=== PATIENT | female | born 1950 | race Caucasian/White ===

== ENCOUNTER 2022-07-13 05:46 | Observation (INO) ==
--- NOTE | 2022-06-22 08:56 | PAT Medication Instructions ---
Medication Instructions Date of Service June 22, 2022 Home Medications atenolol 50 mg-chlorthalidone 25 mg tablet 1 tab PO QPM atorvastatin 40 mg tablet 40 mg PO QPM docusate sodium 100 mg capsule 100 mg PO BID fluoxetine 20 mg capsule (Prozac) 20 mg PO QPM metformin 1,000 mg tablet 500 mg PO BID Centrum Silver 1 tab PO QAM nitroglycerin 0.4 mg sublingual tablet 0.4 mg sublingual Q5M PRN Chest Pain aspirin 81 mg tablet,delayed release 81 mg PO QPM calcium carbonate 500 mg-vitamin D3 3.125 mcg (125 unit) tablet 1 tab PO QAM gabapentin 100 mg capsule 200 mg PO BID lisinopril 5 mg tablet 5 mg PO QAM Continue as directed nitroglycerin 0.4 mg sublingual tablet 0.4 mg sublingual Q5M PRN Chest Pain (if needed) ASK your prescriber and surgeon aspirin 81 mg tablet,delayed release 81 mg PO QPM DO NOT take the morning of surgery docusate sodium 100 mg capsule 100 mg PO BID metformin 1,000 mg tablet 500 mg PO BID Centrum Silver 1 tab PO QAM calcium carbonate 500 mg-vitamin D3 3.125 mcg (125 unit) tablet 1 tab PO QAM lisinopril 5 mg tablet 5 mg PO QAM Take morning of surgery With a small sip of water, OTHERWISE NOTHING TO EAT OR DRINK AFTER MIDNIGHT: gabapentin 100 mg capsule 200 mg PO BID Take evening before surgery atenolol 50 mg-chlorthalidone 25 mg tablet 1 tab PO QPM atorvastatin 40 mg tablet 40 mg PO QPM docusate sodium 100 mg capsule 100 mg PO BID fluoxetine 20 mg capsule (Prozac) 20 mg PO QPM metformin 1,000 mg tablet 500 mg PO BID gabapentin 100 mg capsule 200 mg PO BID Other Notes If you have any questions please call us at [phone] or [phone] or [phone] or [phone]
--- NOTE | 2022-06-26 11:44 | Anesthesiology Consultation ---
Date of Service June 26, 2022 Assessment & Plan (1) Encounter for pre-operative examination: - check BSG am DOS. - Case discussed with Dr. Jones who advised pt can proceed as currently scheduled. - cardiology 09/13/21: "...history of CAD status post 2 vessel bypass-VERA to the LAD and SVG to OM...remains reasonably active...no cardiac symptoms currently...mild LV dysfunction...to check an echocardiogram to follow the estimated EF...no change to her cardiovascular medications..." Subsequent echo demonstrated EF 55%. Chart Review Chart Review: Acceptable Risk for Surgery and Patient seen in Pre Admission Testing Teaching & Discussion Pre-Anesthesia Teaching/Discussion Notes: Instructed NPO after midnight before surgery, except medications with 15 cc of water. Medication instructions provided according to the PAT guidelines. History Surgery Operation Date: 07/13/22 07:30 Proposed Procedures p Vaginal Hysterectomy, Anterior and Posterior Colpoperineorrhaphy - Ezra Ko MD Height/Weight Height: 5 ft 3 in Weight: 72.575 kg Allergies Allergy/AdvReac Type Severity Reaction Status Date / Time No Known Allergies Allergy Verified 06/21/22 10:48 Medications Home Medications Medication Instructions Recorded Confirmed Last Taken atenolol 50 mg-chlorthalidone 25 1 tab PO QPM 06/30/19 06/21/22 Unknown mg tablet atorvastatin 40 mg tablet 40 mg PO QPM 06/30/19 06/21/22 Unknown docusate sodium 100 mg capsule 100 mg PO BID 06/30/19 06/21/22 Unknown fluoxetine 20 mg capsule (Prozac) 20 mg PO QPM 06/30/19 06/21/22 Unknown metformin 1,000 mg tablet 500 mg PO BID 06/30/19 06/21/22 Unknown xzvhqfbw-rlp-[id number] acid 0.4 1 tab PO QAM 06/30/19 06/21/22 Unknown mg-lycopene 300 mcg-lutein 250 mcg tablet (Centrum Silver) nitroglycerin 0.4 mg sublingual 0.4 mg sublingual Q5M PRN Chest 06/30/19 06/21/22 Unknown tablet Pain aspirin 81 mg tablet,delayed 81 mg PO QPM 06/21/22 06/21/22 Unknown release calcium carbonate 500 mg-vitamin 1 tab PO QAM 06/21/22 06/21/22 Unknown D3 3.125 mcg (125 unit) tablet gabapentin 100 mg capsule 200 mg PO BID 06/21/22 06/21/22 Unknown lisinopril 5 mg tablet 5 mg PO QAM 06/21/22 06/21/22 Unknown Past Medical History Medical History (Updated 06/26/22 @ 15:30 by Jennifer Hinds PA-C) Blind RT "D/T STREP INFECTION" CAD (coronary artery disease) x 2 in 2013, 3 stents in 2010 Glaucoma NO EYE DROPS Hearing deficit History of anxiety History of cellulitis HOSPITALIZED>LEFT HAND 3 WEEKS AGO AT [facility] "HEALED" History of COVID-19 06/2021>SYMPTOMS RESOLVED Hyperlipidemia Hypertension controlled, stable per pt Myocardial Infarction 2013 Peripheral neuropathy feet Prediabetes on metformin, A1c 6.3% Prolapsed bladder Patient denies h/o stroke, seizures, heart failure, blood clots or blood transfusions. Exercise / Class Metabolic Activity III < 4 Walking/Shop/Light housework (denies CP or SOB with usual activities, ambulates with cane) Past Family History Family History Father Tuberculosis Mother Heart problem Other No family history of adverse response to anesthesia Past Surgical History Surgical History History of cataract surgery RT/LEFT History of cholecystectomy History of colonoscopy History of coronary artery bypass graft 2013 X2 VESSELS AT [facility] (FOLLOWED BY DR. TURNER) History of heart artery stent X 2>2010 History of lumbar fusion Past Anesthesia History No Hx of Anesthesia Complications and No Family Hx of Anesthesia Complications History of PONV No Hx of PONV and No Hx of Motion Sickness Social History Smoking Status: Never smoker Do You Dip or Chew Tobacco: No Hx Alcohol Use: No substance use type: does not use Review of Systems Snoring, denies witnessed apneas. Patient denies chest pain, shortness of breath, dyspnea on exertion, reflux, fever, chills, cough, wheezing, or palpitations. Physical Exam Vital Signs Vitals BP 115/74 P 52 SP02 96% on RA RESP 18 Physical Full cervical extension range of motion without pain TMD 3.5 finger breadths Mallampati Score 2 Dentition: edentulous, full upper and lower dentures Lungs: normal respiratory effort. Clear throughout to auscultation, no adventitious breath sounds Cardiac: regular rate and rhythm, no murmurs noted Carotid arteries: negative bruit bilat Lab Results Anesthesia Preop Results Results Anesthesia Widget: WBC 7.52 K/ul (4.8-10.8) 06/26/22 Hgb 13.0 g/dl (12.0-16.0) 06/26/22 Hct 40.9 % (34.1-44.9) 06/26/22 Plt 216 K/uL (130-400) 06/26/22 Na 138 mmol/L (136-145) 06/26/22 K 4.1 mmol/L (3.5-5.1) 06/26/22 Cl 101 mmol/L (98-107) 06/26/22 CO2 30 mmol/L (21-32) 06/26/22 BUN 19 mg/dl (6-23) 06/26/22 Creat 1.34 mg/dl (0.6-1.2) H 06/26/22 Glucose Level 85 mg/dl (70-99(Fasting)) 06/26/22 PT 10.8 Seconds (9.0-12.0) 06/26/22 PTT 25.2 Seconds (21.0-31.0) 06/26/22 INR 1.0 (0.9-1.1) 06/26/22 HA1c 6.3 % (4.5-5.6) H 06/26/22 Blood Type B Negative 06/26/22 Antibody Screen NEGATIVE 06/26/22 Testing Electrocardiogram Date: 10/03/21 Sinus rhythm, rate 53 bpm Moderate right-precordial repolarization disturbance, consider feminine pattern Echocardiogram Date: 01/24/22 EF 55% Grade I diastolic dysfunction Mild mitral regurgitation Mild pulmonic regurgitation COVID-19 Risk Screen Screening Information COVID-19 Screen Date: 06/26/22 Exposure 21 Days Family/Household +COVID Last 21 Days: No Exposure 10 Days Any COVID Exposure Last 10 Days: No Symptoms Last 10 Days Experienced COVID Sx Last 10 Days: No + COVID 0-90 Days COVID + in Last 0-90 Days: No
--- NOTE | 2022-06-26 13:10 | History and Physical Report ---
DATE OF ADMISSION: 07/13/2022 CHIEF COMPLAINT: Mass protruding from vagina on coughing or sneezing. HISTORY OF PRESENT ILLNESS: The patient is a 71-year-old 2, para 2. She had her tubes tied for control many years ago. She had cardiac stents placed in [place] in 2010 and then she had a cardiac bypass surgery in 2013 in [place]. She also has had back surgery at [facility] and she lost t he sight in her right eye in 2018 because of a strep infection. She underwent menopause at age 49. She has had no bleeding since. She has a mass protruding from her vagina on coughing, sneezing, stra ining; present for over 6 months, getting progressively worse and it interferes with her ability to h old her urine. She was examined in the office, found to have a third-degree cystocele, second-degree uterine prolapse and first-degree rectocele. She is presently being scheduled for vaginal hysterecto my, anterior and posterior colporrhaphy with insertion of suprapubic cystocath. ALLERGIES: She has no known drug allergies. PAST SURGICAL HISTORY: She had tubal ligation, cardiac bypass, cardiac stents and back surgery. MEDICATIONS: She is on Centrum vitamin. She is on baby aspirin. She is on metformin. She is on li sinopril. She is on gabapentin, Tenormin and Prozac 20 mg a day. PAST MEDICAL HISTORY: Complicated by diabetes and high blood pressure. SOCIAL HISTORY: No smoking, no excessive alcohol intake. She stays at home. FAMILY HISTORY: She has 2 children, in good health. Mom at age 84 of complications of bowel bl ockage. Father at age 63 of tuberculosis associated with alcoholism. Four sisters, two brother s. One brother at age 58 of complications of alcoholism, diabetes, and kidney failure. One brot her is 66, in good health. Three of her four sisters . One sister at age 60 after having a breast reduction. One sister at age 88 of complications of dementia. One sister at 78 is in go od health except for arthritis. One sister in her 60s, she was grossly overweight and had compl ications of diabetes and high blood pressure. REVIEW OF SYSTEMS: HEAD: No symptoms of frequent or severe headaches. EYES: She has lost the sight in her right eye. PHYSICAL EXAMINATION: GENERAL: Well-developed, well-nourished 71-year-old white female, alert, oriented x3, cooperative, i n no acute distress, appeared her stated age. EYES: Conjunctivae pink. Sclerae white, no evidence of jaundice. Right eye is present, but not fun ctional. HEART: Had regular rhythm. S1 and S2 are normal. BREASTS: Normal. CHEST: There was a midline incision in the chest, well-healed. ABDOMEN: Soft and nontender. MUSCULOSKELETAL: No CVA tenderness, no calf tenderness. PELVIC: Revealed a large cystocele protruding from the vagina on coughing, sneezing or straining. S he also had a first-degree uterine prolapse and a first-degree rectocele. IMPRESSIONS OF THIS CASE: High blood pressure, diabetes, heart disease, status post tubal ligation, status post cardiac bypass, loss of sight of her right eye due to streptococcal infection. Symptomat ic cystocele, symptomatic prolapse, symptomatic rectocele. Job ID: [id number]
[2022-07-13] MEDS ORDERED: LR 15ML/HR IV SCH ×2 (06:00)
[2022-07-13] MEDS ORDERED: cefOXitin 2,000 MG in DEXTROSE 5% 50 ML IV SCH (06:00)
[2022-07-13] MEDS ORDERED: fentaNYL citrate 100 MCG/2 ML VIAL ONE (06:50)
[2022-07-13] MEDS ORDERED: PROPOFOL IV EMULSION 10 MG/ML 20 ML VIAL IV ONE (06:50)
[2022-07-13] MEDS ORDERED: ROCURONIUM BROMIDE 10 MG/ML 5 ML VIAL IV ONE (06:50)
[2022-07-13] MEDS ORDERED: MIDAZOLAM HCL 1 MG/ML 2ML VIAL ONE (06:50)
[2022-07-13] MEDS ORDERED: LIDOCAINE 2% 20 MG/ML 5 ML SYR IV ONE (06:50)
[2022-07-13] MEDS ORDERED: PREMARIN VAG CRM 14 APPLN/30 GM TUBE ONE (07:01)
[2022-07-13] MEDS ORDERED: ATROPINE SULFATE 0.1 MG/ML 10ML SYR IV PRN (07:10)
[2022-07-13] MEDS ORDERED: ePHEDrine sulfate 50 MG/ML AMP IV PRN ×2 (07:10→11:19)
[2022-07-13] MEDS ORDERED: PROMETHAZINE HCL 12.5 MG in SODIUM CHLORIDE 0.9% 50 ML IV PRN (07:10)
[2022-07-13] MEDS ORDERED: fentaNYL citrate 100 MCG/2 ML VIAL IV PRN (07:10)
[2022-07-13] MEDS ORDERED: ONDANSETRON INJ 2 MG/ML 2 ML VIAL IV PRN ×2 (07:10→11:19)
[2022-07-13] MEDS ORDERED: HYDROmorphone INJ 2 MG/ML SYR/VIAL IV PRN (07:10)
[2022-07-13] MEDS ORDERED: ACETAMINOPHEN 1000 MG/100 ML IV IV ONE (07:18)
--- NOTE | 2022-07-13 07:20 | History & Physical Bridge Note ---
Date of Service July 13, 2022 History & Physical Bridge Note I have examined the patient, reviewed the History & Physical and in the interval since the performance of the History & Physical I have noted the following changes of clinical significance: no changes noted
[2022-07-13] MEDS ORDERED: MoRPHine SULFATE PF 1 MG/ML 10 ML AMP/VIAL ONE (07:24)
[2022-07-13] MEDS ORDERED: LIDOCAINE 1%/EPINEPHRINE 1:100,000 50 ML VIAL ONE ×2 (08:11→09:23)
[2022-07-13] MEDS ORDERED: ONDANSETRON INJ 2 MG/ML 2 ML VIAL ONE (08:35)
[2022-07-13] MEDS ORDERED: ePHEDrine sulfate 50 MG/ML SYR ONE (08:41)
[2022-07-13] MEDS ORDERED: ePHEDrine sulfate 50 MG/ML AMP ONE (08:41)
[2022-07-13] MEDS ORDERED: PHENYLEPHRINE HCL 10 MG/ML VIAL ONE (08:41)
--- NOTE | 2022-07-13 11:11 | Post Operative Brief Note ---
Immediate Post Op Note v1 Date of Surgery July 13, 2022 Pre & Post Diagnosis Operation Date: 07/13/22 07:15 Pre-Op Diagnosis: Uterine Prolapse, 3 degree cystocele Rectocele Post-Op Diagnosis: Uterine Prolapse, 3 degree cystocele Rectocele I identified the patient and participated in the time-out.: Yes Procedure Operation Date: 07/13/22 07:15 Actual Procedures p Vaginal Hysterectomy, Anterior and Posterior Colpoperineorrhaphy, Insertion suprapubic catheter(Not Applicable) - Ezra Ko MD s Repair of Bowel and Bladder Insertion of Suprapubic Cystocath - Ezra Ko MD Surgeon Ezra Ko MD Harness Rigger none Estimated Blood Loss 100 Findings Consistent with Post-Op Diagnosis uterine fibroid Drains Suprapubic Catheter Anesthesia Type General
[2022-07-13] MEDS ORDERED: NALOXONE HCL 0.4 MG/1 ML VIAL/CARP IV PRN (11:19)
[2022-07-13] MEDS ORDERED: LACTATED RINGER'S 500 ML IV PRN (11:19)
[2022-07-13] MEDS ORDERED: NALBUPHINE HCL INJ 10 MG/ML AMP IV PRN (11:19)
[2022-07-13] MEDS ORDERED: MEPERIDINE HCL 25 MG/ML CARP/VIAL IV PRN (11:19)
[2022-07-13] MEDS ORDERED: NALOXONE HCL 1 MG in SODIUM CHLORIDE 0.9% 1000ML 1,000 ML IV PRN (11:19)
[2022-07-13] MEDS ORDERED: KETOROLAC 30 MG/ML VIAL IV PRN (11:19)
[2022-07-13] MEDS ORDERED: NALOXONE HCL 0.08 MG in SYRINGE 1.8 ML IV PRN (11:19)
[2022-07-13] MEDS ORDERED: MoRPHine SULFATE PF 1 MG/ML 10 ML AMP/VIAL INT SPINAL ONE (11:19)
[2022-07-13] MEDS ORDERED: diphenhydrAMINE 50 MG/ML VIAL IV PRN (11:19)
[2022-07-13] MEDS ORDERED: HYDROmorphone INJ 0.5 MG/0.5 ML SYR IV PRN (11:19)
[2022-07-13] MEDS ORDERED: PROMETHAZINE HCL 25 MG in SODIUM CHLORIDE 0.9% 50 ML IV PRN (11:19)
[2022-07-13] MEDS ORDERED: MoRPHine SULFATE 2 MG/ML CARP IV PRN (11:19)
[2022-07-13] MEDS ORDERED: SODIUM CHLORIDE 0.9% 1000ML 1,000 ML IV SCH (11:30)
[2022-07-13] MEDS ORDERED: DC INTRASPINAL MORPHINE SCH (11:30)
[2022-07-13] MEDS ORDERED: NO NARCOTICS OR SEDATIVES SCH (11:30)
--- NOTE | 2022-07-13 11:58 | Operative Report (OR) ---
DATE OF PROCEDURE: 07/13/2022. PROCEDURE: Vaginal hysterectomy, anterior colporrhaphy, posterior colporrhaphy, insertion of suprapu bic cysto cath. INDICATIONS FOR SURGERY: Mass protruding from the vagina. Loss of urine on coughing or sneezing. PREOPERATIVE DIAGNOSES: Symptomatic vaginal prolapse along with cystocele and rectocele. POSTOPERATIVE DIAGNOSES: Symptomatic vaginal prolapse along with cystocele and rectocele. Cervical fibroid. SURGEON: Zulma Ko MD. ESTIMATED BLOOD LOSS: 100 mL. ANESTHESIA: General with spinal narcotics. ONLINE MARKETING STRATEGIST: None. OPERATIVE FINDINGS AND PROCEDURE: The patient was brought to the OR table, correctly identified by a rmband and conversation. General anesthesia was administered. Perineum and vagina were painted with Betadine paint, draped in the usual sterile fashion. Catheter was used to empty the bladder. Weigh theo speculum was placed in the posterior vagina. The cervix was sutured with a [id number] sutur e of silk rope and we used this to put traction on the cervix. The end of the cervix could be easily brought out through the opening of the vagina. The cervical area was infiltrated with local with ep inephrine. A circular incision was made around the cervix. The bladder was taken off by hugging the cervix at 12 o'clock spreading with the scissors and then blunt dissection. Bladder pillars were cl amped with a Esperanza and then ligated with a transfixion suture of chromic catgut. Then, we started by ligating the uterosacral ligaments on either side with a Esperanza, cutting and ligating with a transfix ion suture of chromic catgut. We then started on the cardinal ligaments. They were clamped, cut wit h a stump, ligated with a transfixion suture of chromic catgut. This was done in 2 steps on each veena e because of the length of the cervix. Then, the peritoneum was entered anteriorly and posteriorly. The remaining portion of the cardinal ligament and uterine vessels were once again clamped, cut with a stump and ligated with a transfixion suture of chromic catgut. The body of the uterus was grasped with a tenaculum and brought out through the cuff and the remaining portion of the tube, ovarian lig ament, and broad ligament was doubly clamped on each side. The surgical specimen was removed, consis ting of uterus and cervix. Then, the adnexal area was doubly ligated with chromic gut sutures. We t hen obliterated the cul-de-sac with a suture, then incorporated the vaginal cuff, was basically a pur sestring suture went from one cardinal ligament incorporating the uterosacral ligaments to the other cardinal ligament and then went up higher and obliterated part of the vaginal cuff. That gave good s upport. We then did an anterior colporrhaphy by grasping the vaginal mucosa 1 cm from the external u rethral meatus and then infiltrating the midline with local with epinephrine, making an incision righ t down to the end of the anterior vaginal mucosa grabbing the edges of the vaginal mucosa with T clam ps and then using a very careful dissection, we dissected out all of the bladder and the fascia on ei ther side. I then dissected up by the urethra on either side. Then, we used a 3-0 Vicryl to approxi mate the bladder fascia, with a [id number] suture right to left, reduced the hernia and give sup port to the urethrovesical angle. This was done in two steps. It was done from the urethrovesical a ngle down to the top of the bladder and then I dissected away the urethrovesical angle on either side . I used a heavy chromic to bring in lateral tissue and tied that under the urethrovesical angle of the bladder for further support. I then also bolstered it with a suture of chromic catgut at the ure throvesical angle, cut away the excess vaginal mucosa, approximated the vaginal mucosa with interrupt ed [id number] sutures of Vicryl. Also made sure I had the peritoneum and fascia closed at the v aginal cuff. Following this, things went well. I then did a posterior colporrhaphy by infiltrating the perineum and posterior vagina with local, excising the wedge-shaped portion of the perineal skin and then dissecting the rectovaginal septum up to the cuff and then excising the excess vaginal mucos a approximating the levator ani muscles with three interrupted ewdhvh-[id number] sutures of chromic cat gut, then the vaginal mucosa with a continuous interlocking suture of Vicryl out and to beyond the hy menal ring. I used a deep suture to approximate the bulbocavernosus. Two sutures approximate the pe rineal body and a running subcuticular suture approximate the perineal skin edges. Following this, I used vaginal packing with estrogen cream and was able to use about 3/4 of a bottle, which indicated she had good vaginal volume. I then with jose armando I did a rectal exam to make sure there were no stitche s through the rectum. I then changed gloves, went to the top, prepped with 420 mL in the bladder. T naina, I used a suprapubic catheter trocar to enter the bladder. Then, I used a sleeve to place a supr apubic catheter, removed the sleeve and sutured the catheter in place. After that, I removed about 3 00 mL of fluid from the bladder, so that it would not be over distended. Following this, hemostasis was good. Estimated blood loss was 100 mL. The patient tolerated the procedure well and left the OR in good condition. Job ID: [id number]
--- NOTE | 2022-07-13 12:50 | Anesthesiology Progress Note ---
Date of Service July 13, 2022 Anesthesia Post Procedure Vital Signs Vital Signs: Temp Pulse Pulse Resp BP Pulse Ox O2 Del Method 07/13/22 11:40 75 15 148/77 H 98 Nasal Cannula 07/13/22 12:00 70 18 131/64 95 Nasal Cannula 07/13/22 11:50 36.5 C 70 16 126/62 95 Nasal Cannula 07/13/22 11:30 79 16 134/60 100 Oxymask 07/13/22 11:23 36.2 C L 78 20 139/54 L 92 Oxymask 07/13/22 06:17 36.1 C L 58 L 20 151/73 H 96 Room Air O2 Flow Rate 07/13/22 11:40 2 07/13/22 12:00 2 07/13/22 11:50 2 07/13/22 11:30 10 07/13/22 11:23 10 07/13/22 06:17 Transfer of Care Handoff Completed per policy Notes Mental Status: alert / awake / arousable and participated in evaluation Patient Amnestic to Procedure: Yes Nausea / Vomiting: adequately controlled Pain: adequately controlled Airway Patency, RR, SpO2: stable & adequate BP & HR: stable & adequate Hydration State: stable & adequate Anesthetic Complications: no major complications apparent
[2022-07-13] MEDS ORDERED: NITROGLYCERIN SL 0.4 MG/TAB TAB SL PRN (12:52)
[2022-07-13] MEDS ORDERED: bisacodyL 10 MG SUPP PR PRN (12:52)
[2022-07-13] MEDS ORDERED: MAGNESIUM HYDROXIDE SUSP 30 ML UDC PO PRN (12:52)
[2022-07-13] MEDS ORDERED: SENNA 8.6 MG TAB PO PRN (12:52)
[2022-07-13] MEDS: LACTATED RINGER'S 1,000 ML IV SCH (14:31)
--- NOTE | 2022-07-13 20:05 | Electrocardiogram Report ---
Test Reason : Blood Pressure : / mmHG Vent. Rate : 055 BPM Atrial Rate : 055 BPM P-R Int : 160 ms QRS Dur : 084 ms QT Int : 458 ms P-R-T Axes : 042 044 066 degrees QTc Int : 438 ms Sinus bradycardia Otherwise normal ECG No previous ECGs available Confirmed by Pablo Elizondo ([id number]) on 07/13/2022 8:05:45 PM Referred By: Ezra Ko Confirmed By:Del Elizondo
[2022-07-13] MEDS: ATENOLOL 50 MG TABLET PO SCH (21:33)
[2022-07-13] MEDS: ASPIRIN 81 MG ECTAB PO SCH (21:33)
[2022-07-13] MEDS: ATORVASTATIN 40 MG TAB PO SCH (21:33)
[2022-07-13] MEDS: hydroCHLOROthiazide 25 MG TAB PO SCH (21:34)
[2022-07-13] MEDS: DOCUSATE SODIUM 100 MG CAP PO SCH (21:34)
[2022-07-13] MEDS: FLUoxetine HCL 20 MG CAP PO SCH (21:34)
[2022-07-14] MEDS: LACTATED RINGER'S 1,000 ML IV SCH ×3 (00:17→17:00)
[2022-07-14] MEDS ORDERED: MEPERIDINE HCL 50 MG/ML CARP IV PRN (05:19)
[2022-07-14] MEDS ORDERED: oxyCODONE/ACETAMINOPHEN 5mg/325mg TAB PO PRN (05:19)
[2022-07-14] MEDS ORDERED: ONDANSETRON INJ 2 MG/ML 2 ML VIAL IV PRN (05:19)
[2022-07-14] MEDS: KETOROLAC TROMETHAMINE 15 MG/ML VIAL IV PRN ×2 (06:24→20:21)
[2022-07-14 07:34] LABS: Basophils # (auto) 0.03 K/uL (0-0.2); Basophils % (auto) 0.2 %; Eosinophils # (auto) 0.04 K/uL (0-0.50); Eosinophils % (auto) 0.3 %; Hematocrit (blood only) 34.6 % (34.1-44.9); Immature Granulocytes # (auto) 0.07 K/uL (0.00-0.02); Immature Granulocytes % (auto) 0.5 %; Lymphocytes % (auto) 9.6 %; Mean Corpuscular Hemoglobin 28.2 pg (25.0-34.0); Mean Corpuscular Hgb Conc 31.8 g/dL (32.0-36.0); Mean Corpuscular Volume 88.7 fL (80.0-100.0); Mean Platelet Volume 10.8 fL (9.4-12.3); Monocytes % (auto) 6.8 %; Neutrophils # (auto) 12.09 K/uL (1.4-6.5); Neutrophils % (auto) 82.6 %; Platelet Count 176 K/uL (130-400); RDW Coefficient of Variation 13.2 % (11.5-14.5); RDW Standard Deviation 42.6 fL (36.4-46.3); White Blood Count 14.63 K/ul (4.8-10.8)
[2022-07-14] MEDS: lisinopril 5 MG TAB PO SCH (08:23)
[2022-07-14] MEDS: DOCUSATE SODIUM 100 MG CAP PO SCH ×2 (08:23→21:50)
[2022-07-14] MEDS: CALCIUM 600MG + VIT D 400 IU TAB PO SCH (08:23)
[2022-07-14] MEDS: GABAPENTIN 100 MG CAP PO SCH ×2 (08:23→21:48)
[2022-07-14] MEDS: CEROVITE ADV FORMULA TAB PO SCH (08:24)
--- NOTE | 2022-07-14 10:07 | Obstetrical Progress Note ---
Date of Service July 14, 2022 Assessment & Plan Admission and Anticipated Discharge Date Admission Date: July 13, 2022 Subjective abdomen soft and non tender passing flatus no calf tenderness urine clear out put good vaginal bleeding scant hgb 11.0 Results & Data ([facility]) Vital Signs (Past 12 Hours) Vital Signs Temp Pulse Pulse Resp BP Pulse Ox O2 Del Method 07/14/22 08:00 36.7 C 71 22 126/59 L 93 Nasal Cannula 07/14/22 08:00 Nasal Cannula 07/14/22 09:11 22 93 07/14/22 08:00 20 92 07/14/22 07:00 20 93 07/14/22 06:00 16 93 07/14/22 04:00 18 96 07/14/22 04:00 36.8 C 71 18 128/64 96 Nasal Cannula 07/14/22 05:00 16 91 07/14/22 03:00 16 93 07/14/22 02:10 20 91 07/14/22 00:10 20 91 07/14/22 01:10 20 92 07/13/22 23:10 20 92 07/13/22 22:10 20 97 07/13/22 22:57 36.8 C 74 18 111/57 L 95 Nasal Cannula O2 Flow Rate 07/14/22 08:00 3 07/14/22 08:00 3 07/14/22 09:11 07/14/22 08:00 07/14/22 07:00 07/14/22 06:00 07/14/22 04:00 07/14/22 04:00 3 07/14/22 05:00 07/14/22 03:00 07/14/22 02:10 07/14/22 00:10 07/14/22 01:10 07/13/22 23:10 07/13/22 22:10 07/13/22 22:57 3
[2022-07-14] MEDS: hydroCHLOROthiazide 25 MG TAB PO SCH (21:46)
[2022-07-14] MEDS: FLUoxetine HCL 20 MG CAP PO SCH (21:49)
[2022-07-14] MEDS: ATORVASTATIN 40 MG TAB PO SCH (21:50)
[2022-07-14] MEDS: ASPIRIN 81 MG ECTAB PO SCH (21:51)
[2022-07-14] MEDS: ATENOLOL 50 MG TABLET PO SCH (21:52)
[2022-07-15] MEDS: LACTATED RINGER'S 1,000 ML IV SCH (01:07)
[2022-07-15 07:47] LABS: Basophils # (auto) 0.03 K/uL (0-0.2); Basophils % (auto) 0.2 %; Eosinophils # (auto) 0.05 K/uL (0-0.50); Eosinophils % (auto) 0.3 %; Hematocrit (blood only) 36.7 % (34.1-44.9); Hemoglobin 11.9 g/dl (12.0-16.0); Immature Granulocytes # (auto) 0.06 K/uL (0.00-0.02); Immature Granulocytes % (auto) 0.4 %; Lymphocytes # (auto) 1.28 K/uL (1.2-3.4); Lymphocytes % (auto) 8.1 %; Mean Corpuscular Hemoglobin 28.2 pg (25.0-34.0); Mean Corpuscular Hgb Conc 32.4 g/dL (32.0-36.0); Mean Platelet Volume 11.1 fL (9.4-12.3); Monocytes % (auto) 6.3 %; Neutrophils # (auto) 13.41 K/uL (1.4-6.5); Neutrophils % (auto) 84.7 %; Platelet Count 175 K/uL (130-400); RDW Standard Deviation 41.2 fL (36.4-46.3); Red Blood Count 4.22 M/uL (3.93-5.22); White Blood Count 15.83 K/ul (4.8-10.8)
--- NOTE | 2022-07-15 09:49 | Obstetrical Progress Note ---
Date of Service July 15, 2022 Assessment & Plan Admission and Anticipated Discharge Date Admission Date: July 13, 2022 Subjective abdomen soft and non tender urine clear output good passing gas no calf tenderness vaginal packing removed nausea present glucose elevated over 380 will consult hospitalist Results & Data ([facility]) Vital Signs (Past 12 Hours) Vital Signs Temp Pulse Resp BP Pulse Ox O2 Del Method O2 Flow Rate 07/14/22 23:45 37.5 C 60 18 121/60 91 Nasal Cannula 4 07/14/22 21:50 64 120/67
[2022-07-15] MEDS: GABAPENTIN 100 MG CAP PO SCH ×2 (09:59→21:45)
[2022-07-15] MEDS: CALCIUM 600MG + VIT D 400 IU TAB PO SCH (10:00)
[2022-07-15] MEDS: DOCUSATE SODIUM 100 MG CAP PO SCH ×2 (10:00→21:45)
[2022-07-15] MEDS: lisinopril 5 MG TAB PO SCH (10:00)
[2022-07-15] MEDS: CEROVITE ADV FORMULA TAB PO SCH (10:01)
[2022-07-15] MEDS: IBUPROFEN 600 MG TAB PO PRN (10:28)
[2022-07-15] MEDS ORDERED: CARBOHYDRATES FOR HYPOGLYCEMIA PO PRN (10:30)
[2022-07-15] MEDS ORDERED: DEXTROSE 50% 50 ML SYRINGE IV PRN (10:30)
[2022-07-15] MEDS ORDERED: GLUCAGON FOR INJ 1 MG VIAL SQ PRN (10:30)
[2022-07-15] MEDS ORDERED: GLUCOSE 10 TAB/TUBE PO PRN (10:30)
[2022-07-15] MEDS ORDERED: GLUCOSE 40% GEL 15 GM TUBE PO PRN (10:30)
[2022-07-15] MEDS: LANTUS PER UNIT CHARGE SQ SCH ×2 (11:09→21:16)
--- NOTE | 2022-07-15 11:09 | Hospitalist Consultation ---
Date of Consultation July 15, 2022 Assessment & Plan (1) Type 2 diabetes mellitus: With regard to her type 2 diabetes this is currently out of control we will use insulin in the hospital using the insulin calculator with intermediate stress shows her to require Lantus 12 units twice daily with a sliding scale with a correction factor of 35 and carb ratio of 11. We will hold her metformin but fully anticipate that she can return to metformin plus minus a sulfonylurea at the time of discharge. We will check a hemoglobin A1c to help us make decisions and if need be have a paraeducator consultation. Patient will have her lactated Ringer's changed to normal saline for the small amount of carbohydrates that it contributes to her glucose control Patient takes gabapentin for peripheral neuropathy this is well controlled at this time (2) Essential hypertension: Patient only has hypertension she is coronary disease. She had a two-vessel CABG in the past with a VERA to her LAD and saphenous vein graft to obtuse marginal and then post CABG she has had a stent. She typically is followed by [facility] cardiology. She had an echocardiogram this summer in January with showing preserved ejection fraction. Her cardiac meds continue to be aspirin 81 a day atorvastatin atenolol lisinopril 5 and she takes hydrochlorothiazide to augment her blood pressure control (3) High cholesterol: Patient remains on atorvastatin as ordered (4) Depression: Patient maintains on Prozac 20 mg a day Plan There appears to be no chemo prophylaxis or SCDs ordered for DVT prevention I w ill order SCDs and will continue to follow her for possible need in the future understanding that with [place] surgery we may not wish to use chemoprophylaxis at this time but as hemostasis is achieved consideration for heparin or enoxaparin could be undertaken History of Present Illness Attending Physician: Ezra Ko MD History of Present Illness 71-year-old female status post vaginal hysterectomy on 09/13/2021 with anterior and posterior colpoperineorrhaphy. Patient has history of type 2 diabetes has not been getting her metformin and has been eating candy in her room. On the morning of the fourth her glucose was 380 consulted for management of her medical problems mostly being her hyperglycemia postoperatively Patient has no complaints or problems states she is only needing lifesavers although there is a bag of peppermint patties on her bedside table. We reviewed her other medical problems that appear to be stable she is got no chest pain shortness of breath no abdominal pain states her vaginal bleeding is controlled. She states that she has not been on any other medications besides metformin for glucose when she checks them at home they are usually in the low 100s. Says though they do rise when she snacks Allergies Allergy/AdvReac Type Severity Reaction Status Date / Time No Known Allergies Allergy Verified 07/13/22 06:12 Home Medications Medication Instructions Recorded Confirmed Type atenolol 50 mg-chlorthalidone 25 1 tab PO QPM 06/30/19 07/13/22 History mg tablet atorvastatin 40 mg tablet 40 mg PO QPM 06/30/19 07/13/22 History docusate sodium 100 mg capsule 100 mg PO BID 06/30/19 07/13/22 History fluoxetine 20 mg capsule (Prozac) 20 mg PO QPM 06/30/19 07/13/22 History metformin 1,000 mg tablet 500 mg PO BID 06/30/19 07/13/22 History wnuexifd-dsv-vrabp acid 0.4 1 tab PO QAM 06/30/19 07/13/22 History mg-lycopene 300 mcg-lutein 250 mcg tablet (Centrum Silver) nitroglycerin 0.4 mg sublingual 0.4 mg sublingual Q5M PRN Chest 06/30/19 07/13/22 History tablet Pain aspirin 81 mg tablet,delayed 81 mg PO QPM 06/21/22 07/13/22 History release calcium carbonate 500 mg-vitamin 1 tab PO QAM 06/21/22 07/13/22 History D3 3.125 mcg (125 unit) tablet gabapentin 100 mg capsule 200 mg PO BID 06/21/22 07/13/22 History lisinopril 5 mg tablet 5 mg PO QAM 06/21/22 07/13/22 History oxycodone-acetaminophen 5 mg-325 1 tab PO Q6H PRN pain #20 tabs 07/14/22 Rx mg tablet (Percocet) Patient History Medical History Blind RT "D/T STREP INFECTION" CAD (coronary artery disease) x 2 in 2013, 3 stents in 2010 Glaucoma NO EYE DROPS Hearing deficit History of anxiety History of cellulitis HOSPITALIZED>LEFT HAND 3 WEEKS AGO AT [facility] "HEALED" History of COVID-19 06/2021>SYMPTOMS RESOLVED Hyperlipidemia Hypertension controlled, stable per pt Myocardial Infarction 2014 Peripheral neuropathy feet Prediabetes on metformin, A1c 6.3% Prolapsed bladder Surgical History History of cataract surgery RT/LEFT History of cholecystectomy History of colonoscopy History of coronary artery bypass graft 2014 X2 VESSELS AT [facility] (FOLLOWED BY DR. 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 Beliefs That Will Affect Care: None Current Living Situation: Spouse Feels Safe at Home: Yes Safety Concerns: Feels Safe At This Time Assistive Devices: Denture - Upper, Denture - Lower and Hearing Aid - Bilateral Review of Systems Review of Systems: Mild distress and fatigue no headache, no visual changes no speech or swallowing issues no chest pain, pressure or palpitations no shortness of breath, cough or wheezes no abdominal pain, nausea or vomiting, diarrhea or constipation Patient states her vaginal bleeding has not been an issue no dysuria, hematuria or frequency no focal joint pain or swelling no back pain, CVA tenderness or radicular pain no bruising, bleeding or rashes no focal signs of weakness or numbness or altered sensation no complaints of anxiety or depression.. Physical Exam Physical Exam: The patient appeared well nourished and normally developed. Patient appears blind in her right eye she keeps her right eye closed Vital signs as documented. Head exam is normocephalic atraumatic Neck is without JVD, thyromegaly, or carotid bruits. Lungs are clear to auscultation, no focal loss of breath sounds Cardiac exam, Rhythm is regular.. No murmurs, rubs or gallops. Abdominal exam reveals normal bowel sounds, soft non tender despite recent surgery, no masses Extremities are nonedematous and both pedal pulses are present Neurologic exam is alert and oriented, no focal loss of strength does have some peripheral neuropathy Skin is without bruises or rashes Psychologically is without concerns for anxiety or depression.. Results & Data Results & Data ([facility]) Vital Signs (Past 12 Hours) Vital Signs Temp Pulse Resp BP Pulse Ox O2 Del Method O2 Flow Rate 07/14/22 23:45 99.5 F 60 18 121/60 91 Nasal Cannula 4 PG Care Time/CCT Total # of Minutes Spent Total Time Spent with Patient: Total time spent is greater than 50% in coordination of care (as documented) at patient's floor/unit and/or counseling patient: Coding Level of Care Code 32582 Inpt Consult Level 4 Diagnoses Type 2 diabetes mellitus E11.9 Essential hypertension I10 High cholesterol E78.00 Depression F32.9
[2022-07-15] MEDS: SODIUM CHLORIDE 0.9% 1000ML 1,000 ML IV SCH ×2 (11:13→21:35)
[2022-07-15 11:45] LABS: BUN Creatinine Ratio 12.2 (10-20); Calcium 9.1 mg/dl (8.5-10.1); Creatinine Clr Calc Pharmacy 39.7 ml/min; Est GFR (African American) 50.7 ml/min; Est GFR (Non-African American) 43.8 ml/min; Potassium 3.5 mmol/L (3.5-5.1)
[2022-07-15] MEDS: INSULIN ASPART PER UNIT SC SCH ×3 (13:25→21:10)
[2022-07-15] MEDS: ATORVASTATIN 40 MG TAB PO SCH (21:45)
[2022-07-15] MEDS: ASPIRIN 81 MG ECTAB PO SCH (21:45)
[2022-07-15] MEDS: hydroCHLOROthiazide 25 MG TAB PO SCH (21:45)
[2022-07-15] MEDS: FLUoxetine HCL 20 MG CAP PO SCH (21:45)
[2022-07-15] MEDS: ATENOLOL 50 MG TABLET PO SCH (21:45)
[2022-07-15] MEDS: ACETAMINOPHEN W/CODEINE #3 1 TAB PO SCH (22:24)
[2022-07-16] MEDS: SODIUM CHLORIDE 0.9% 1000ML 1,000 ML IV SCH ×2 (05:14→15:32)
[2022-07-16] MEDS: ACETAMINOPHEN W/CODEINE #3 1 TAB PO SCH (05:57)
[2022-07-16 08:13] LABS: BUN Creatinine Ratio 12.1 (10-20); Calcium 8.2 mg/dl (8.5-10.1); Creatinine Clr Calc Pharmacy 45.7 ml/min; Est GFR (African American) 60.1 ml/min; Est GFR (Non-African American) 51.8 ml/min; Potassium 3.4 mmol/L (3.5-5.1)
--- NOTE | 2022-07-16 09:09 | Obstetrical Progress Note ---
Date of Service July 16, 2022 Assessment & Plan Admission and Anticipated Discharge Date Admission Date: July 13, 2022 Subjective patient doing better urine clear output good no calf tenderness blood sugars are under control will start clamping ackerman catheter vaginal bleeding scant hgb 11.9 Results & Data ([facility]) Vital Signs (Past 12 Hours) Vital Signs Temp Pulse Resp BP Pulse Ox O2 Del Method O2 Flow Rate 07/16/22 03:00 36.8 C 56 L 18 112/61 92 Nasal Cannula 3 07/16/22 03:00 Nasal Cannula 3 07/15/22 22:49 37.1 C 61 18 126/67 90 Nasal Cannula 3
[2022-07-16] MEDS: INSULIN ASPART PER UNIT SC SCH ×2 (09:23→13:22)
[2022-07-16] MEDS: CEROVITE ADV FORMULA TAB PO SCH (09:25)
[2022-07-16] MEDS: CALCIUM 600MG + VIT D 400 IU TAB PO SCH (09:25)
[2022-07-16] MEDS: GABAPENTIN 100 MG CAP PO SCH ×2 (09:25→20:12)
[2022-07-16] MEDS: lisinopril 5 MG TAB PO SCH (09:27)
[2022-07-16] MEDS: DOCUSATE SODIUM 100 MG CAP PO SCH ×2 (09:27→20:36)
[2022-07-16] MEDS: LANTUS PER UNIT CHARGE SQ SCH (09:36)
[2022-07-16 12:59] LABS: Estimated Average Glucose 137 mg/dl; Hemoglobin A1C 6.4 % (4.5-5.6)
--- NOTE | 2022-07-16 16:20 | Communication Note ---
Date of Service: July 16, 2022 Patient is blood sugars have been dropping subsequently stopping the basal bolus insulin given the fact that she is now not eating the high concentration of carbohydrates we will resume her metformin the evening of 07/15 and if she is in satisfactory condition can be discharged based upon gynecology's preference her average glucose is 6.4 I do not feel she needs additional agents as long as she sticks to dietary discretion she is to be discharged on her metformin 500 twice daily as was her prehospital medication regimen
[2022-07-16] MEDS: LACTATED RINGER'S 1,000 ML IV SCH (19:21)
[2022-07-16] MEDS: hydroCHLOROthiazide 25 MG TAB PO SCH (20:12)
[2022-07-16] MEDS: FLUoxetine HCL 20 MG CAP PO SCH (20:13)
[2022-07-16] MEDS: metFORMIN HCL 500 MG TAB PO SCH (20:13)
[2022-07-16] MEDS: ATORVASTATIN 40 MG TAB PO SCH (20:13)
[2022-07-16] MEDS: ASPIRIN 81 MG ECTAB PO SCH (20:14)
[2022-07-16] MEDS: ATENOLOL 50 MG TABLET PO SCH (20:36)
[2022-07-17] MEDS: IBUPROFEN 600 MG TAB PO PRN ×2 (00:05→21:45)
[2022-07-17 07:52] LABS: BUN Creatinine Ratio 13.6 (10-20); Calcium 8.7 mg/dl (8.5-10.1); Creatinine Clr Calc Pharmacy 41.4 ml/min; Est GFR (African American) 53.4 ml/min; Potassium 3.3 mmol/L (3.5-5.1)
--- NOTE | 2022-07-17 08:12 | Obstetrical Progress Note ---
Date of Service July 17, 2022 Assessment & Plan Admission and Anticipated Discharge Date Admission Date: July 13, 2022 Subjective abdomen soft and non tender urine clear output good patient has some degree of incontinence no calf tenderness vaginal bleeding scant clamping suprapubic catheter Results & Data ([facility]) Vital Signs (Past 12 Hours) Vital Signs Temp Pulse Pulse Resp BP Pulse Ox O2 Del Method 07/17/22 04:30 36.7 C 58 L 18 142/70 H 95 Nasal Cannula 07/17/22 00:00 Nasal Cannula 07/17/22 00:00 36.9 C 57 L 20 150/66 H 96 Nasal Cannula 07/16/22 20:15 Nasal Cannula 07/16/22 20:19 36.9 C 56 L 18 138/72 93 Nasal Cannula O2 Flow Rate 07/17/22 04:30 2.5 07/17/22 00:00 2.5 07/17/22 00:00 2.5 07/16/22 20:15 2.5 07/16/22 20:19 2.5
[2022-07-17] MEDS: metFORMIN HCL 500 MG TAB PO SCH ×2 (08:53→16:54)
[2022-07-17] MEDS: lisinopril 5 MG TAB PO SCH (08:54)
[2022-07-17] MEDS: GABAPENTIN 100 MG CAP PO SCH ×2 (08:54→20:53)
[2022-07-17] MEDS: DOCUSATE SODIUM 100 MG CAP PO SCH ×2 (08:54→20:52)
[2022-07-17] MEDS: CALCIUM 600MG + VIT D 400 IU TAB PO SCH (08:54)
[2022-07-17] MEDS: CEROVITE ADV FORMULA TAB PO SCH (08:55)
[2022-07-17] MEDS: ASPIRIN 81 MG ECTAB PO SCH (20:49)
[2022-07-17] MEDS: ATORVASTATIN 40 MG TAB PO SCH (20:50)
[2022-07-17] MEDS: ATENOLOL 50 MG TABLET PO SCH (20:50)
[2022-07-17] MEDS: FLUoxetine HCL 20 MG CAP PO SCH (20:52)
[2022-07-17] MEDS: hydroCHLOROthiazide 25 MG TAB PO SCH (21:21)
[2022-07-17] MEDS ORDERED: POTASSIUM CHLORIDE 20 MEQ/15 ML UDC PO STA (21:27)
[2022-07-18] MEDS: metFORMIN HCL 500 MG TAB PO SCH (07:49)
[2022-07-18] MEDS: IBUPROFEN 600 MG TAB PO PRN ×2 (07:49→11:30)
[2022-07-18] MEDS: CEROVITE ADV FORMULA TAB PO SCH (09:07)
[2022-07-18] MEDS: GABAPENTIN 100 MG CAP PO SCH (09:07)
[2022-07-18] MEDS: CALCIUM 600MG + VIT D 400 IU TAB PO SCH (09:07)
[2022-07-18] MEDS: lisinopril 5 MG TAB PO SCH (09:07)
[2022-07-18] MEDS: DOCUSATE SODIUM 100 MG CAP PO SCH (09:08)
--- NOTE | 2022-07-18 09:31 | Obstetrical Progress Note ---
Date of Service July 18, 2022 Assessment & Plan Admission and Anticipated Discharge Date Admission Date: July 13, 2022 Subjective abdomen soft and non tender no calf tenderness ambulating well vaginal bleeding scant urine clear voiding in small amounts with high residuals Results & Data ([facility]) Vital Signs (Past 12 Hours) Vital Signs Temp Pulse Pulse Resp BP Pulse Ox O2 Del Method 07/18/22 07:30 36.6 C 60 20 159/71 H 96 Room Air 07/18/22 03:00 36.9 C 74 18 140/94 94 Room Air
--- NOTE | 2022-07-18 10:43 | Discharge Summary (DS) ---
HOSPITAL COURSE: The patient she was admitted with symptomatic uterine prolapse, along with a cystoc john and rectocele, some stress incontinence. She is a 71-year-old 2, para 2. She had her tu bes tied for control. She had cardiac stents in [place] in 2010, had a cardiac bypass in 2013. Also, she had surgery at [place] for her back. 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 She has a mass protruding from her vagina on coughing, sneezing, straining, prese nt for well over 6 months, getting progressively worse. It interfered with her ability to hold her u rine and she was admitted for a vaginal hysterectomy, anterior and posterior colporrhaphy along with insertion of a suprapubic Cystocath, surgery went well. There were no problems. She was given proph ylactic antibiotics at the time of surgery. Her preoperative hemoglobin was 13. Postoperatively, he r hemoglobin fell to 11.9. Postoperative bleeding was minimal. However, she did have a little bit of trouble with ambulation due to her loss of sight in her right eye. She also had an episode of hyperg lycemia and this was managed by consulting with the hospitalist. She also had an episode of diarrhea . Eventually, we were able to get the hyperglycemia under control, get the diarrhea under control. Shannen thomas started clamping her catheter on the third postoperative day, took out our vaginal packing on the s econd postoperative day, and at the time of discharge, she was ambulating, she was voiding; however, she was voiding in relatively small amounts and had fairly high residuals. Her was given ins tructions on how to manage the suprapubic catheter and she was discharged to be followed in her home and office and to return to the office for removal of suprapubic catheter when she was able to void i n amounts larger than 100 mL with residuals under 100 mL. Job ID: [id number]
== END 2022-07-18 14:55 | disposition home or self-care (01) ==
LOC: ASU 05:46 → INTOOBSV 11:17 → 4E1 11:17
PROC: M.APREP (2022-07-13 07:15)